=== PATIENT | female | born 1985 | race Caucasian/White ===

== ENCOUNTER 2017-12-06 20:31 | Emergency (ER) | payer SELFPAY ==
[2017-12-06 22:00] LABS: Basophils # (Auto) 0.1 K/mm3 (0.0-0.1); Basophils % (Auto) 0.6 % (0.0-1.8); Eosinophils % (Auto) 0.5 % (0.0-4.3); Hematocrit 36.4 % (30.3-42.9); Hemoglobin 11.9 gm/dl (10.1-14.3); Lymphocytes # (Auto) 2.3 K/mm3 (1.2-5.4); Lymphocytes % (Auto) 27.8 % (13.4-35.0); Mean Corpuscular HGB Conc 33 % (30-34); Mean Corpuscular Hemoglobin 28 pg (28-32); Mean Corpuscular Volume 84 fl (79-97); Monocytes # (Auto) 0.4 K/mm3 (0.0-0.8); Monocytes % (Auto) 5.2 % (0.0-7.3); Platelet Count 193 K/mm3 (140-440); Red Blood Count 4.33 M/mm3 (3.65-5.03); Red Cell Distribution Width 13.7 % (13.2-15.2)
[2017-12-06 22:17] LABS: Alanine Aminotransferase 30 units/L (7-56); Albumin 4.4 g/dL (3.9-5); BUN/Creatinine Ratio 30; Blood Urea Nitrogen 12 mg/dL (7-17); Calcium 9.2 mg/dL (8.4-10.2); Hemolysis Index 3
--- NOTE | 2017-12-06 23:40 | Ultrasound Report ---
FINAL REPORT EXAM: US OB TRANSVAGINAL HISTORY: possible aminiotic fluid leak TECHNIQUE: Ultrasound obstetrical transvaginal PRIORS: None. FINDINGS: There is a gestational sac within the uterus. There is a yolk sac identified There is pole with crown-rump length of 1.72 centimeters corresponding to estimated gestational age of 8 weeks 1 day Based on today's exam estimated date of delivery July 17, 2018 right ovary is 2.8 x 2.3 x 1.7 centimeters Left ovary is 2.8 x 1.9 x 2.2 centimeters cardiac activity is present with heart rate of 158 beats per minute IMPRESSION: Single live intrauterine gestation estimated at 8 weeks 1 day
--- NOTE | 2017-12-06 23:41 | Ultrasound Report ---
FINAL REPORT EXAM: US OB < = 14 WEEKS FETUS HISTORY: possible aminiotic fluid leak TECHNIQUE: PRIORS: None. FINDINGS: There is a gestational sac within the uterus. There is a yolk sac identified There is pole with crown-rump length of 1.72 centimeters corresponding to estimated gestational age of 8 weeks 1 day Based on today's exam estimated date of delivery July 17, 2018 right ovary is 2.8 x 2.3 x 1.7 centimeters Left ovary is 2.8 x 1.9 x 2.2 centimeters cardiac activity is present with heart rate of 158 beats per minute IMPRESSION: Single live intrauterine gestation estimated at 8 weeks 1 day
[2017-12-07 01:31] VITALS: BP 103/58
== END 2017-12-07 02:55 ==
LOC: ED 20:31
DX: O26.891 Other specified pregnancy related conditions, first trimester (principal); Z3A.01 Less than 8 weeks gestation of pregnancy
CPT/HCPCS: 36415; 76801; 76817; 80053; 84703; 85025

== ENCOUNTER 2021-12-20 18:38 | Emergency (ER) | payer MEDICAID ==
[2021-12-20 19:48] VITALS: BP 115/54
[2021-12-20] MEDS ORDERED: SODIUM CHLORIDE 0.9% 1000 ML 1,000 ML IV ONE (21:08)
[2021-12-20] MEDS ORDERED: FAMOTIDINE 20 MG/2 ML INJ IV ONE (21:08)
[2021-12-20] MEDS ORDERED: MORPHINE 4 MG/1 ML INJ IV ONE (21:08)
[2021-12-20] MEDS ORDERED: ONDANSETRON 4 MG/2 ML INJ IV ONE (21:08)
[2021-12-20 21:37] LABS: Basophils % (Auto) 0.6 % (0.0-1.8); Eosinophils # (Auto) 0.1 K/mm3 (0.0-0.4); Eosinophils % (Auto) 2.1 % (0.0-4.3); Hemoglobin 12.4 gm/dl (10.1-14.3); Lymphocytes # (Auto) 2.3 K/mm3 (1.2-5.4); Lymphocytes % (Auto) 32.8 % (13.4-35.0); Mean Corpuscular HGB Conc 33 % (30-34); Mean Corpuscular Volume 84 fl (79-97); Monocytes # (Auto) 0.6 K/mm3 (0.0-0.8); Platelet Count 196 K/mm3 (140-440); Red Blood Count 4.53 M/mm3 (3.65-5.03); Red Cell Distribution Width 14.4 % (13.2-15.2)
[2021-12-20 21:52] LABS: Alanine Aminotransferase 14 units/L (7-56); Albumin 4.8 g/dL (3.9-5); Blood Urea Nitrogen 15 mg/dL (7-17); Hemolysis Index 0
[2021-12-20 22:20] LABS: BUN/Creatinine Ratio 30
[2021-12-20 22:48] LABS: Color,Urine Yellow (Yellow)
[2021-12-20 22:49] LABS: Bilirubin,Urine Negative (Negative); Blood,Urine Negative (Negative); PH,Urine 6.5 (5.0-7.0); Protein,Urine <30 mg dL mg/dL (Negative); Urobilinogen,Urine < 0.2 mg/dL (<2.0)
[2021-12-20 22:54] LABS: Mucus,Urine FEW /HPF
--- NOTE | 2021-12-20 23:09 | Cat Scan Report ---
CT ABDOMEN AND PELVIS WITH CONTRAST INDICATION / CLINICAL INFORMATION: Abdominal pain with diarrhea x 1 week. TECHNIQUE: Axial CT images were obtained through the abdomen and pelvis after 100 cc Omnipaque [address] scans at this location are performed using CT dose reduction for ALARA by means of automated exposure control. COMPARISON: None available. FINDINGS: LOWER CHEST: No significant abnormality of the imaged chest. LIVER: No focal lesion. No acute findings. GALLBLADDER: Gallstones are suggested. Additional gallbladder wall measures up to 3 mm. BILE DUCTS: No significant abnormality. SPLEEN: No significant abnormality. PANCREAS: No significant abnormality. ADRENALS: No significant abnormality. KIDNEYS/URETERS: Subcentimeter cyst upper right kidney. Additional subcentimeter cyst cortical medull estefany junction left anterolateral aspect of mid to lower left kidney. STOMACH / DUODENUM / SMALL BOWEL: The stomach, duodenum, and small bowel demonstrate no significant a bnormality. No specific abnormality of the mesentery demonstrated. COLON: No significant abnormality. APPENDIX: No significant abnormality. PERITONEUM: No free air or free fluid are present within the abdomen or pelvis. LYMPH NODES: No significant adenopathy. AORTA / ARTERIES: No significant abnormality. IVC / VEINS: No significant abnormality. URINARY BLADDER: No significant abnormality. REPRODUCTIVE ORGANS: No significant abnormality. ADDITIONAL ABDOMINAL/PELVIC FINDINGS: None. SKELETAL SYSTEM: No significant abnormality. IMPRESSION: 1. Noncalcified gallstones and borderline wall thickening are suggested. Findings are considered nons pecific in the setting of diarrhea. No specific imaging findings to suggest etiology of diarrhea. Signer Name: Lazaro Malik II, MD Signed: 12/20/2021 11:04 PM Workstation Name: [id number]
--- NOTE | 2021-12-21 00:16 | Emergency Department Report ---
ED Abdominal Pain HPI - General Chief Complaint: Abdominal Pain Stated Complaint: ABD PAIN Source: patient Mode of arrival: Ambulatory Limitations: Language Barrier - History of Present Illness Initial Comments: Patient is a A0 36-year-old female with no past medical history presents to the ED with complaint of acute onset persistent epigastric pain, nausea and diarrhea for the last 2 days. Patient states that the pain is especially worse with food, and that in the last 12 hours she has had multiple bouts of diarrhea with worsening epigastric pain. Patient states that no one else at home is had similar symptoms. Patient denies dizziness, syncope, hematemesis, vomiting, dysuria, urinary frequency and urgency, shortness of breath, headache, dizziness and syncope. MD Complaint: abdominal pain (epigastric pain), other (diarrhea and nausea) -: Sudden, days(s) (2) Location: epigastric Radiation: none Migration to: no migration Severity scale (0 -10): 8 Quality: aching, sharp Consistency: intermittent Improves With: nothing Worsens With: eating, vomiting Associated Symptoms: denies other symptoms, nausea, diarrhea. denies: vomiting, fever, chills, constipation, dysuria, hematochezia, melena, anorexia, syncope - Related Data LMP Date: 12/08/21 Previous Rx's Medication Instructions Recorded Last Taken Type Dicyclomine [Bentyl] 20 mg PO Q6H PRN #40 tablet 12/21/21 Unknown Rx Famotidine [Pepcid] 20 mg PO BID #60 tablet 12/21/21 Unknown Rx Omeprazole 40 mg PO DAILY #60 cap 12/21/21 Unknown Rx Ondansetron [Zofran Odt] 4 mg PO Q8HR PRN #15 tab.rapdis 12/21/21 Unknown Rx Allergies Allergy/AdvReac Type Severity Reaction Status Date / Time No Known Allergies Allergy Verified 12/06/17 21:34 ED Review of Systems ROS: Stated complaint: ABD PAIN Other details as noted in HPI Constitutional: denies: chills, fever Eyes: denies: eye pain, eye discharge, vision change ENT: denies: ear pain, throat pain Respiratory: denies: cough, shortness of breath, wheezing Cardiovascular: denies: chest pain, palpitations Endocrine: no symptoms reported Gastrointestinal: abdominal pain (Epigastric pain), nausea, diarrhea. denies: vomiting Genitourinary: denies: urgency, dysuria, discharge Musculoskeletal: denies: back pain, joint swelling, arthralgia Skin: denies: rash, lesions Neurological: denies: headache, weakness, paresthesias Psychiatric: denies: anxiety, depression Hematological/Lymphatic: denies: easy bleeding, easy bruising ED Past Medical Hx - Past Medical History Previous Medical History?: No - Surgical History Past Surgical History?: No - Social History Smoking Status: Never Smoker - Medications Home Medications: Home Medications Medication Instructions Recorded Confirmed Last Taken Type Dicyclomine [Bentyl] 20 mg PO Q6H PRN #40 tablet 12/21/21 Unknown Rx Famotidine [Pepcid] 20 mg PO BID #60 tablet 12/21/21 Unknown Rx Omeprazole 40 mg PO DAILY #60 cap 12/21/21 Unknown Rx Ondansetron [Zofran Odt] 4 mg PO Q8HR PRN #15 tab.rapdis 12/21/21 Unknown Rx ED Physical Exam - General Limitations: Language Barrier General appearance: alert, in no apparent distress - Head Head exam: Present: atraumatic, normocephalic, normal inspection - Eye Eye exam: Present: normal appearance, PERRL, EOMI Pupils: Present: normal accommodation - ENT ENT exam: Present: normal exam, normal orophraynx, mucous membranes moist, TM's normal bilaterally, normal external ear exam - Neck Neck exam: Present: normal inspection, full ROM. Absent: tenderness - Respiratory Respiratory exam: Present: normal lung sounds bilaterally. Absent: respiratory distress, wheezes, rales, rhonchi, chest wall tenderness, accessory muscle use, decreased breath sounds - Cardiovascular Cardiovascular Exam: Present: regular rate, normal rhythm, normal heart sounds. Absent: systolic murmur, diastolic murmur, rubs, gallop - GI/Abdominal GI/Abdominal exam: Present: soft, tenderness (Palpable mild epigastric tenderness), normal bowel sounds. Absent: guarding, rebound, hyperactive bowel sounds, hypoactive bowel sounds, mass - Extremities Exam Extremities exam: Present: normal inspection, full ROM, normal capillary refill - Back Exam Back exam: Present: normal inspection, full ROM. Absent: tenderness, CVA tenderness (R), CVA tenderness (L), muscle spasm, paraspinal tenderness, vertebral tenderness - Neurological Exam Neurological exam: Present: alert, oriented X3, CN II-XII intact, normal gait, reflexes normal - Psychiatric Psychiatric exam: Present: normal affect, normal mood - Skin Skin exam: Present: warm, dry, intact, normal color. Absent: rash ED Course Vital Signs 12/20/21 19:45 Temperature 97.7 F Pulse Rate 63 Respiratory 18 Rate Blood Pressure 115/54 O2 Sat by Pulse 100 Oximetry ED Medical Decision Making - Lab Data Result diagrams: 12/20/21 21:14 12/20/21 21:14 - Radiology Data Radiology results: report reviewed, image reviewed [facility] [address] [place] [address] Cat Scan Report Signed Patient: RAYMOND LOPEZ MR #: [id number] : 1985 Acct:[id number] Age/Sex: 36 / F ADM Date: 12/20/21 Loc: ED Attending Dr: Ordering Physician: NOAH HERNÁNDEZ Date of Service: 12/20/21 Procedure(s): CT abdomen pelvis w con Accession Number(s): [id number] cc: NOAH HERNÁNDEZ CT ABDOMEN AND PELVIS WITH CONTRAST INDICATION / CLINICAL INFORMATION: Abdominal pain with diarrhea x 1 week. TECHNIQUE: Axial CT images were obtained through the abdomen and pelvis after 100 cc Omnipaque [address] scans at this location are performed using CT dose reduction for ALARA by means of automated exposure control. COMPARISON: None available. FINDINGS: LOWER CHEST: No significant abnormality of the imaged chest. LIVER: No focal lesion. No acute findings. GALLBLADDER: Gallstones are suggested. Additional gallbladder wall measures up to 3 mm. BILE DUCTS: No significant abnormality. SPLEEN: No significant abnormality. PANCREAS: No significant abnormality. ADRENALS: No significant abnormality. KIDNEYS/URETERS: Subcentimeter cyst upper right kidney. Additional subcentimeter cyst cortical medullary junction left anterolateral aspect of mid to lower left kidney. STOMACH / DUODENUM / SMALL BOWEL: The stomach, duodenum, and small bowel demonstrate no significant abnormality. No specific abnormality of the mesentery demonstrated. COLON: No significant abnormality. APPENDIX: No significant abnormality. PERITONEUM: No free air or free fluid are present within the abdomen or pelvis. LYMPH NODES: No significant adenopathy. AORTA / ARTERIES: No significant abnormality. IVC / VEINS: No significant abnormality. URINARY BLADDER: No significant abnormality. REPRODUCTIVE ORGANS: No significant abnormality. ADDITIONAL ABDOMINAL/PELVIC FINDINGS: None. SKELETAL SYSTEM: No significant abnormality. IMPRESSION: 1. Noncalcified gallstones and borderline wall thickening are suggested. Findings are considered nonspecific in the setting of diarrhea. No specific imaging findings to suggest etiology of diarr hea. Signer Name: Dorcas Alan II, MD Signed: 12/20/2021 11:04 PM Workstation Name: [id number] Transcribed By: MONIK Dictated By: DORCAS ALAN II, MD Electronically Authenticated By: DORCAS ALAN II, MD Signed Date/Time: 12/20/212303 DD/ 01 TD/TT: - Medical Decision Making This is a A0 36-year-old female with no past medical history presents to the ED with complaint of acute onset persistent epigastric pain, nausea and diarrhea for the last 2 days. Patient states that the pain is especially worse with food, and that in the last 12 hours she has had multiple bouts of diarrhea with worsening epigastric pain. Patient states that no one else at home is had similar symptoms. In the ED, patient is alert and oriented x3 and is not in any distress. Patient was treated for nausea and vomiting, also given antacids and normal saline 1 L IV bolus x1. Lab test results were reviewed and are all nonactionable. Abdomen pelvis CT scan with IV contrast showed noncalcified gallstones and borderline wall thickening are suggested. Findings are considered nonspecific in the setting of diarrhea. No specific imaging findings to suggest etiology of diarrhea. On reevaluation, patient's pain is well controlled medications. Nausea and vomiting also resolved. Patient will discharge home on medications and advised to follow-up with her primary care physician in 5 to 7 days for reevaluation or return to the ED immediately if symptoms get worse. - Differential Diagnosis Gastroenteritis; GERD; gallstones; UTI; dehydration; Critical care attestation.: If time is entered above; I have spent that time in minutes in the direct care of this critically ill patient, excluding procedure time. ED Disposition Clinical Impression: Diarrhea in adult patient, Viral gastroenteritis Abdominal pain Qualifiers: Abdominal location: epigastric Qualified Code(s): R10.13 - Epigastric pain GERD (gastroesophageal reflux disease) Qualifiers: Esophagitis presence: esophagitis presence not specified Qualified Code(s): K21.9 - Gastro-esophageal reflux disease without esophagitis Gallstones without obstruction of gallbladder Qualifiers: Cholelithiasis location: gallbladder Cholecystitis presence: without cholecystitis Qualified Code(s): K80.20 - Calculus of gallbladder without cholecystitis without obstruction Disposition: 01 HOME / SELF CARE / HOMELESS Is pt being admited?: No Does the pt Need Aspirin: No Condition: Stable Instructions: Abdominal Pain (ED), Heartburn, Qmet-ll-[id number], Abdominal Pain, Adult, [id number]-[id number], Food Choices for Gastroesophageal Reflux Disease, Adult, Vjul-[id number], Gastroesophageal Reflux Disease, Adult, Rjut-vv-Khtl, Diarrhea, Adult, [id number], Viral Gastroenteritis, Adult, [id number], Cholelithiasis, [id number]-on-Ozhv Additional Instructions: Todos los resultados de las pruebas de laboratorio fueron revisados ??y no son procesables. La tomografa computarizada de abdomen y pelvis con contraste intravenoso mostr clculos biliares no calcificados sin signos de engrosamiento de la pared de la vescula biliar. Es probable que mikki sntomas se deban a complicaciones de la ERGE, que es el reflujo cido. Por lo tanto, tome los medicamentos con alimentos, amador muchos lquidos, lee un seguimiento con coyne mdico de atencin primaria en 5 a 7 schwarz para albert reevaluacin o regrese al servicio de urgencias inmediatamente si los sntomas empeoran. Prescriptions: Dicyclomine [Bentyl] 20 mg PO Q6H PRN #40 tablet PRN Reason: Abdominal pain Omeprazole 40 mg PO DAILY #60 cap Famotidine [Pepcid] 20 mg PO BID #60 tablet Ondansetron [Zofran Odt] 4 mg PO Q8HR PRN #15 tab.rapdis PRN Reason: Nausea Referrals: TOREY JAFFE MD [Primary Care Provider] - 3-5 Days Forms: Work/School Release Form(ED) Time of Disposition: 00:13 Print Language: [place]
== END 2021-12-21 00:34 | disposition home or self-care (01) ==
LOC: ED 18:38
DX: K21.9 Gastro-esophageal reflux disease without esophagitis (principal); K80.80 Other cholelithiasis without obstruction; A08.4 Viral intestinal infection, unspecified; R10.13 Epigastric pain; R19.7 Diarrhea, unspecified
CPT/HCPCS: 36415; 74177; 80053; 81001; 83690; 84703; 85025; 96361; 96374; 96375; 99284; J2270; J2405; J3490; J7030; Q9967